=== PATIENT | female | born 1995 | race African-American/Black ===

== ENCOUNTER 2017-10-26 16:18 | Emergency (ER) | payer SELFPAY ==
[~2017-10-26] VITALS: Ht 172.7 cm; Wt 59.0 kg
[2017-10-26 19:10] LABS: BILIRUBIN,URINE NEGATIVE (NEG); GLUCOSE,URINE NEGATIVE (NEG); NITRITE,URINE NEGATIVE (NEG); PROTEIN,URINE 30 mg/dL (NEG-TRACE)
[2017-10-26 19:18] LABS: BACTERIA,URINE FEW /HPF (0-FEW); RBC,URINE 0 /HPF (0-2); SQUAMOUS EPITHELIAL CELL,UR MANY /LPF; WBC,URINE OCC /HPF (0-4)
[2017-10-26 19:20] VITALS: BP 113/66
--- NOTE | 2017-10-26 19:24 | PHYS DOC ---
Past Medical History Past Medical History: No Pertinent History Past Surgical History: No Surgical History Alcohol Use: None Drug Use: None Adult General Chief Complaint Chief Complaint: ABDOMINAL PAIN IN HPI HPI Patient is a 22 year old female who presents with complaint of lower abdominal pain. Patient states her symptoms started earlier today. The patient states that the pain feels like cramping and patient rates the pain currently as 4 out of 10. The patient states that she is with last menstrual period on August 09, 2017. Patient recently found out that she was and has not followed up with a physician at this time. The patient denies any diarrhea, vaginal bleeding, or abnormal discharge. Patient states that she has had nausea in the morning time but this usually resolves by lunchtime. Patient denies any associated fevers. Review of Systems Review of Systems Constitutional: Denies fever or chills [] Eyes: Denies change in visual acuity, redness, or eye pain [] HENT: Denies nasal congestion or sore throat [] Respiratory: Denies cough or shortness of breath [] Cardiovascular: Denies chest pain or edema[] GI: Abdominal pain, nausea, denies vomiting, bloody stools or diarrhea [] : Denies dysuria or hematuria [] Musculoskeletal: Denies back pain or joint pain [] Integument: Denies rash or skin lesions [] Neurologic: Denies headache, focal weakness or sensory changes [] Endocrine: Denies polyuria or polydipsia [] All other systems were reviewed and found to be within normal limits, except as documented in this note. Allergies Allergies Allergies Coded Allergies Type Severity Reaction Last Updated Verified No Known Drug Allergies 10/26/17 No Physical Exam Physical Exam Constitutional: Well developed, well nourished, no acute distress, non-toxic appearance. [] HENT: Normocephalic, atraumatic, bilateral external ears normal, oropharynx moist, no oral exudates, nose normal. [] Eyes: PERRLA, EOMI, conjunctiva normal, no discharge. [] Neck: Normal range of motion, no tenderness, supple, no stridor. [] Cardiovascular:Heart rate regular rhythm, no murmur [] Lungs & Thorax: Bilateral breath sounds clear to auscultation [] Abdomen: Bowel sounds normal, soft, no tenderness, no masses, no pulsatile masses. [] Skin: Warm, dry, no erythema, no rash. [] Back: No tenderness, no CVA tenderness. [] Extremities: No tenderness, no cyanosis, no clubbing, ROM intact, no edema. [] Neurologic: Alert and oriented X 3, normal motor function, normal sensory function, no focal deficits noted. [] Psychologic: Affect normal, judgement normal, mood normal. [] Current Patient Data Vital Signs Vital Signs Date Time Temp Pulse Resp B/P (MAP) Pulse Ox O2 Delivery O2 Flow Rate FiO2 10/26/17 19:20 84 113/66 (82) 99 Room Air 10/26/17 18:54 18 10/26/17 16:55 97.9 97.9 Lab Values Laboratory Tests Test 10/26/17 16:34 10/26/17 16:43 Urine Collection Type Unknown Urine Color [place] Urine Clarity Clear Urine pH 7.0 Urine Specific [place] >=1.030 Urine Protein 30 mg/dL (NEG-TRACE) Urine Glucose (UA) Negative mg/dL (NEG) Urine Ketones (Stick) >=80 mg/dL (NEG) Urine Blood Negative (NEG) Urine Nitrite Negative (NEG) Urine Bilirubin Negative (NEG) Urine Urobilinogen Dipstick 1.0 mg/dL (0.2 mg/dL) Urine Leukocyte Esterase Trace (NEG) Urine RBC 0 /HPF (0-2) Urine WBC Occ /HPF (0-4) Urine Squamous Epithelial Cells Many /LPF Urine Bacteria Few /HPF (0-FEW) Urine Mucus Marked /LPF POC Urine HCG, Qualitative Hcg positive (Negative) EKG EKG Not performed Radiology/Procedures Radiology/Procedures Limited bedside transabdominal ultrasound performed and interpreted by myself: Intrauterine , heart rate 168 bpm, no pelvic free fluid, no adnexal masses[] Course & Med Decision Making Course & Med Decision Making Pertinent Labs and Imaging studies reviewed. (See chart for details) The patient's exam was normal and patient is not displaying any signs of acute severe pain. The patient is likely experiencing abdominal pain secondary to mild dehydration causing uterine cramping given that the patient's urinalysis shows concentration of urine. Advised the patient to continue with oral hydration and use of Tylenol as needed and recommended follow-up within the next 5-7 days for reevaluation. Advised return emergency department for any worsening symptoms. Patient voiced understanding and in agreement with treatment plan. Dragon Disclaimer Dragon Disclaimer This electronic medical record was generated, in whole or in part, using a voice recognition dictation system. Departure Departure Impression: Primary Impression: Abdominal pain during Additional Impression: Dehydration Disposition: 01 HOME, SELF-CARE Condition: IMPROVED Referrals: NO PCP (PCP) Patient Instructions: Abdominal Pain During , Dehydration, Adult Additional Instructions: Follow-up with your physician in 5-7 days for reevaluation. Be sure to drink plenty of fluids and use Tylenol as needed for any aches and pains. Return to emergency department for any worsening symptoms. Problem Qualifiers Primary Impression: Abdominal pain during Trimester: first trimester Qualified Codes: O26.891 - Other specified related conditions, first trimester; R10.9 - Unspecified abdominal pain NEHAL MONTEMAYOR MD Oct 26, 2017 19:24
== END 2017-10-26 19:41 | disposition home or self-care (01) ==
LOC: ER 16:18
DX: O26.891 Other specified pregnancy related conditions, first trimester (principal); R10.30 Lower abdominal pain, unspecified; R11.0 Nausea; O99.281 Endocrine, nutritional and metabolic diseases complicating pregnancy, first trimester; E86.0 Dehydration; Z3A.00 Weeks of gestation of pregnancy not specified
CPT/HCPCS: 81001; 81025; 87086; 99285